=== PATIENT | male | born 1980 | race African-American/Black ===

== ENCOUNTER 2019-09-01 19:30 | Inpatient (IN) | payer MEDICAID, SELFPAY ==
[~2019-09-01] VITALS: Ht 167.6 cm; Wt 84.8 kg
[2019-09-01] MEDS: NACL 0.9% 1,000 ML IV SCH (01:05)
--- NOTE | 2019-09-01 19:40 | NUR ---
PT TAKEN TO BED 9
--- NOTE | 2019-09-01 19:52 | NUR ---
Dr. Cardenas examining patient.
[2019-09-01] MEDS ORDERED: ACETAMINOPHEN EXTRA STRENGTH 500 MG TAB ONE (19:57)
[2019-09-01] MEDS ORDERED: ACETAMINOPHEN EXTRA STRENGTH 500 MG TAB PO ONE (20:00)
--- NOTE | 2019-09-01 20:00 | NUR ---
PT PLACED ON BEDSIDE MONITOR, O2 SAT ON ROOM AIR 88%, PLACED ON O2 4L N/C. LABS DRAWN AND NASAL SWABS COMPLETED.
[2019-09-01 20:27] LABS: BASOPHILS # (AUTO) 0.1 K/uL (0.00-0.22); BASOPHILS % (AUTO) 0.9 % (0.0-2.0); EOSINOPHILS # (AUTO) 0.1 K/uL (0-0.4); EOSINOPHILS % (AUTO) 1.8 % (0.0-4.0); HEMATOCRIT 27.1 % (36-52); LYMPHOCYTES # (AUTO) 0.4 K/uL (2.0-11.5); LYMPHOCYTES % (AUTO) 5.3 % (20.5-51.1); MEAN CORPUSCULAR HEMOGLOBIN 28 pg (27-31); MEAN CORPUSCULAR HGB CONC 33 g/dL (33-37); MONOCYTES # (AUTO) 0.6 K/uL (0.8-1.0); MONOCYTES % (AUTO) 7.7 % (1.7-9.3); NEUTROPHILS # (AUTO) 6.4 K/uL (1.8-7.7); NEUTROPHILS % (AUTO) 84.3 % (42.2-75.2); PLATELET COUNT (AUTO) 322 K/uL (140-450); RED BLOOD CELL COUNT(AUTO) 3.19 MIL/uL (4.20-6.10); RED CELL DISTRIBUTION WIDTH 13.9 % (11.6-13.7); WHITE BLOOD COUNT (AUTO) 7.6 K/uL (4.8-10.8)
--- NOTE | 2019-09-01 20:30 | NUR ---
EKG COMPLETED AND SHOWED TO DR. MORSE
--- NOTE | 2019-09-01 20:31 | NUR ---
RT AT BEDSIDE DRAWING ABG.
--- NOTE | 2019-09-01 20:35 | NUR ---
BED IN LOWEST POSITION AND BEDRAIL UP X 1
[2019-09-01 20:38] LABS: C-REACTIVE PROTEIN QUANT 21.8 mg/dL (0.0-0.9)
[2019-09-01 20:41] LABS: ALBUMIN 2.7 g/dL (3.4-5.0); ANION GAP 12.7 (8-16); CARBON DIOXIDE 31.7 mmol/L (21-32); POTASSIUM 3.4 mmol/L (3.5-5.1); TOTAL BILIRUBIN 0.8 mg/dL (0.0-1.0)
[2019-09-01 20:47] LABS: PROTHROMBIN TIME 9.8 secs (10.8-13.4)
[2019-09-01 20:52] LABS: RSV NEGATIVE (NEGATIVE)
--- NOTE | 2019-09-01 20:54 | NUR ---
X-Ray at bedside.
[2019-09-01 20:55] LABS: AMYLASE 54 U/L (25-115); LACTATE DEHYDROGENASE 265 U/L (85-227)
[2019-09-01 20:56] LABS: LIPASE 67 U/L (73-393)
[2019-09-01 21:00] LABS: D-DIMER 2260 ng/ml (0-400); FIBRINOGEN > 500 mg/dL (200-400)
[2019-09-01 21:36] LABS: APPEARANCE,URINE CLEAR (CLEAR); BILIRUBIN,URINE 2+ (NEGATIVE); BLOOD, URINE 1+ (NEGATIVE); COLOR,URINE YELLOW (YELLOW); LEUKOCYTE ESTERASE ,URINE NEGATIVE (NEGATIVE); NITRITE, URINE NEGATIVE (NEGATIVE); UGLUCOSE 2+ (NEGATIVE)
--- NOTE | 2019-09-01 21:40 | NUR ---
DR. MORSE NOTIFIED ON TEMP 101.9 AND CONTINUED HEADACHE OF 01/30, NEW ORDER GIVEN
[2019-09-01] MEDS ORDERED: IBUPROFEN 400 MG TAB ONE (21:43)
[2019-09-01 21:47] LABS: RBC,URINE 0-5 /HPF (0-5)
[2019-09-01] MEDS ORDERED: IBUPROFEN 400 MG TAB PO ONE (21:55)
[2019-09-01] MEDS ORDERED: AZITHROMYCIN 500 MG in DEXTROSE 5% 250 ML IV ONE (22:40)
[2019-09-01] MEDS ORDERED: cefTRIAXone 1,000 MG VIAL ONE (22:44)
[2019-09-01] MEDS ORDERED: AZITHROMYCIN 500 MG INJ VIAL IV ONE (22:50)
--- NOTE | 2019-09-01 23:23 | NUR ---
PT STATES HE NOW HAS AN APPETITE. AWARE AND OK TO EAT A SANDWICH
[2019-09-01] MEDS ORDERED: ACETAMINOPHEN 325 MG TAB PO PRN (23:30)
--- NOTE | 2019-09-01 23:48 | NUR ---
DR. PEREIRA AT BEDSIDE
[2019-09-01 23:53] LABS: BARBITURATE, URINE NEGATIVE ng/ml (NEG <=200)
[2019-09-01 23:54] LABS: BENZODIAZEPINE, URINE POSITIVE ng/mL (NEG <=200); CANNABINOID, URINE NEGATIVE ng/mL (NEG <=50); COCAINE, URINE NEGATIVE ng/mL (NEG <=300); OPIATE, URINE POSITIVE ng/mL (NEG <=2000); PHENCYCLIDINE SCREEN,URINE NEGATIVE ng/mL (NEG <=25)
[2019-09-02 00:05] LABS: MAGNESIUM 1.9 mg/dL (1.8-2.4); PHOSPHORUS 4.2 mg/dL (2.5-4.9); THYROID STIMULATING HORMONE 1.46 uIU/mL (0.34-3.74)
[2019-09-02] MEDS ORDERED: LISI40TA4 PO (00:09)
[2019-09-02] MEDS ORDERED: ASPI-1822 PO (00:09)
[2019-09-02] MEDS ORDERED: ATOR10TA PO (00:09)
[2019-09-02] MEDS ORDERED: PHO667 PO (00:09)
[2019-09-02] MEDS ORDERED: BENZ100C6 PO (00:09)
[2019-09-02] MEDS ORDERED: HYDR100T79 PO (00:09)
[2019-09-02] MEDS ORDERED: FLUO40CA6 PO (00:09)
[2019-09-02] MEDS ORDERED: ACET1TAB93 PO (00:09)
[2019-09-02] MEDS ORDERED: GABA100C PO (00:09)
--- NOTE | 2019-09-02 00:13 | NUR ---
SPOKE WITH MOTHER JAYCEE WITH PT PERMISSION; INFORMED OF PTS STATUS AND PLAN OF CARE. ALL QUESTIONS ANSWERED.
--- NOTE | 2019-09-02 00:20 | NUR ---
MADE ROUNDS . O2 SAT WNL . NO COMPLAIN MADE . WILL CONT. TO MONITOR. Addendum: 09/03/19 at 0128 by Naa Allan RN THE ABOVE NURSE'S NOTES IS AN ERROR ENTRY - JOSIAH
--- NOTE | 2019-09-02 00:30 | NUR ---
Patient will be admitted to care of [facility]. Admited to TELE UNIT. Will go to room 130. Belongings list completed. Report to LIZZETTE ORELLANA.
[2019-09-02 00:45] VITALS: BP 138/83
[2019-09-02] MEDS ORDERED: POTASSIUM CHLORIDE 10 MEQ TABER PO ONE (00:45)
--- NOTE | 2019-09-02 00:45 | NUR ---
RECEIVED PT AAOX4 , NOT IN ACUTE DISTRESS - O2 SAT WNL , W/ O2 AT 3LPM/NC , ON GURNEY FROM ER , TRANSFER TO BED W/ STANDBY ASSIST . IV SITE INTACT AND PATENT , W/ HD ACCESS ON RIGHT UPPER CHEST - HE SAID HIS LAST HD IS LAST SUNDAY . ADMISSION ASSESSMENT DONE - MRSA SPECIMEN SENT TO LAB . SAFETY MEASURES IN PLACE . PLAN OF CARE DISCUSSED AND VERBALIZE UNDERSTANDING- CALL LIGHT WITHIN REACH . PROVIDED URINAL ON BEDSIDE , ON TELE MONITOR. HOOK ON O2 SAT MONITOR - WILL CONT. TO MONITOR.
[2019-09-02] MEDS ORDERED: cefTRIAXone 1,000 MG VIAL ONE (00:46)
[2019-09-02] MEDS: ZOLPIDEM 5 MG TAB PO PRN (02:32)
[2019-09-02 04:00] VITALS: BP 128/70
--- NOTE | 2019-09-02 04:00 | NUR ---
MADE ROUNDS , NO S/ S OF ACUTE DISTRESS NOTED AT THIS TIME. WILL CONT. TO MONITOR.
[2019-09-02 06:18] LABS: ANION GAP 11.6 (8-16); CARBON DIOXIDE 30.9 mmol/L (21-32); POTASSIUM 4.5 mmol/L (3.5-5.1)
[2019-09-02 06:19] LABS: BASOPHILS # (AUTO) 0.1 K/uL (0.00-0.22); EOSINOPHILS # (AUTO) 0.1 K/uL (0-0.4); EOSINOPHILS % (AUTO) 2.1 % (0.0-4.0); HEMATOCRIT 24.6 % (36-52); HEMOGLOBIN 8.1 g/dL (12.0-18.0); LYMPHOCYTES # (AUTO) 0.6 K/uL (2.0-11.5); LYMPHOCYTES % (AUTO) 11.1 % (20.5-51.1); MEAN CORPUSCULAR HEMOGLOBIN 28 pg (27-31); MEAN CORPUSCULAR HGB CONC 33 g/dL (33-37); MEAN CORPUSCULAR VOLUME 85.9 fL (80-94); MONOCYTES # (AUTO) 0.5 K/uL (0.8-1.0); MONOCYTES % (AUTO) 9.3 % (1.7-9.3); NEUTROPHILS # (AUTO) 4.2 K/uL (1.8-7.7); NEUTROPHILS % (AUTO) 76.5 % (42.2-75.2); PLATELET COUNT (AUTO) 276 K/uL (140-450); RED BLOOD CELL COUNT(AUTO) 2.87 MIL/uL (4.20-6.10); RED CELL DISTRIBUTION WIDTH 13.9 % (11.6-13.7); WHITE BLOOD COUNT (AUTO) 5.5 K/uL (4.8-10.8)
[2019-09-02] MEDS ORDERED: DEXTROSE 50% 50 ML SYR IVP PRN (06:30)
[2019-09-02 06:41] LABS: CREATININE 9.5 mg/dL (0.6-1.3)
[2019-09-02 06:45] LABS: CHOL/HDL RATIO 6.7 (1-4.5); MAGNESIUM 1.8 mg/dL (1.8-2.4); PHOSPHORUS 4.4 mg/dL (2.5-4.9)
[2019-09-02] MEDS: INSULIN LISPRO SLIDING SCALE 100 UNITS/ML VIAL SUBQ PRN ×3 (06:52→16:14)
[2019-09-02] MEDS: BLOOD GLUCOSE MONITORING 1 DEV DEV FS SCH ×4 (06:53→21:34)
--- NOTE | 2019-09-02 06:58 | NUR ---
HGT 457 - 10 U GIVEN ORDERED BY DR. GIBSON - INFORM CHARGE NURSE. WILL CONT. TO MONITOR. Addendum: 09/02/19 at 0748 by Naa Allan RN THE WORD DR. GIBSON ON THE ABOVE NURSE'S NOTES IS AN ERROR ENTRY INSTEAD OF DR JANY RAHMAN
--- NOTE | 2019-09-02 07:20 | NUR ---
ENDORSED - PT - STABLE
--- NOTE | 2019-09-02 07:21 | NUR ---
Received report from pm nurse Naa. Pt asleep, respirations even & nonlabored on O2 @ 3Lpm via n/c with visible chest rise & fall. Call light within reach.
[2019-09-02 08:00] VITALS: BP 139/89
--- NOTE | 2019-09-02 08:51 | NUR ---
PATIENT HAS BEEN SCREENED AND CATEGORIZED HIGH NUTRITION RISK. PATIENT WILL BE SEEN WITHIN 1-2 DAYS OF ADMISSION. 09/02/19-09/03/[address]
[2019-09-02] MEDS ORDERED: ENOXAPARIN 40 MG/0.4 ML SYR SUBQ SCH (09:00)
[2019-09-02] MEDS: hydrALAZINE 25 MG TAB PO SCH ×3 (09:00→16:13)
[2019-09-02] MEDS: LISINOPRIL 20 MG TAB PO SCH (09:00)
[2019-09-02] MEDS ORDERED: AZITHROMYCIN 250 MG TAB PO SCH (09:00)
[2019-09-02] MEDS ORDERED: VANCOMYCIN PER PHARMACY MC PRN (09:20)
[2019-09-02] MEDS: FAMOTIDINE 20 MG TAB PO SCH (09:34)
[2019-09-02] MEDS: FLUoxetine 20 MG CAP PO SCH (09:35)
[2019-09-02] MEDS: ASPIRIN 81 MG TAB.CHEW PO SCH (09:35)
[2019-09-02] MEDS: ASCORBIC ACID 500 MG TAB PO SCH (09:35)
[2019-09-02] MEDS: GABAPENTIN 100 MG CAP PO SCH ×3 (09:35→16:12)
[2019-09-02] MEDS: DOCUSATE SODIUM 100 MG GELCAP PO SCH ×2 (09:35→21:34)
[2019-09-02] MEDS: ZINC SULF 220 MG CAP PO SCH (09:36)
--- NOTE | 2019-09-02 10:15 | NUR ---
Spoke to [facility] and confirmed ETA for hemodialysis is 12noon. Dr Petersen notified.
--- NOTE | 2019-09-02 10:39 | NUR ---
DISCHARGE PLANNING: THIS IS A 39 Y/O MALE PATIENT FROM HOME, WHO CAME IN DUE TO COUGH AND GENERALIZED WEAKNESS. PAST MEDICAL HISTORY INCLUDE ESRD - ON HD , HTN, DM, NEUROPATHY AND HLD. MRSA, BLOOD AND URINE C/S PENDING. ON ROCEPHIN. CURRENT LABS INCLUDE WBC 5.5, H/H 8.1/8.1/24.6, NA/K 137/4.5, BUN/CREA 36/9.5 AND GLU 511. UDS POSITIVE FOR OPIATES AND BENZO. COVID 19 PENDING. NEGATIVE FOR INFLUENZA AND B AND NEGATIVE WITH RSV NEGATIVE. FOR HD TODAY. NEPHRO, ID, CARDIO AND PULMO CONSULTS IN PLACE. DC PLAN PENDING ON PATIENT'S RESPONSE TO TREATMENT. Addendum: 09/03/19 at 1050 by Daphne Goldstein CM OLD PERMA CATH WAS REMOVED LAST NIGHT BY DR FAROOQ. SEEN BY NEPHRO - ON LINE HOLIDAY, ADD NIFEDIPINE FOR HTN. COVID TEST STILL PENDING. DC PLAN BACK TO HOME ONCE STABLE. Addendum: 09/03/19 at 1058 by Daphne BClaire Berdijo CM CONTACTED LAB [id number], ABLE TO SPEAK TO BACILIO TO FOLLOW UP ON THE COVID RESULTS. HE STATED NO RESULTS ARE BACK YET, HOWEVER, HE WILL CONTACT THE LAB TO FOLLOW UP. Addendum: 09/04/19 at 1349 by Daphne Goldstein CM SEEN BY SURGERY - PLAN FOR REPLACEMENT OF CHE CATHETER TOMORROW. Addendum: 09/05/19 at 1336 by Kendy Marino CM DC PLANNING: SPOKE WITH DR BRITTNEE SCHNEIDER [place] CLERK DISCUSSED REGARDING DC WITH CHE CATH , PER DR BEAULIEU WILL DISCUSSED WITH ID DR PEDRO AND RESIDENT AND IF ID REQUEST NEEDS 2 WEEKS TO INSERT TUNNELED CATH OK TO DC WITH CHE CATH. CALLED [facility] [phone] SPOKE WITH ABIEL NOTIFIED HER PATIENT HAS A DIALYSIS ORDER AND IV VANCOMYCIN TO BE GIVEN WITH DIALYSIS. AND PER ID DR PEDRO PATIENT HAS TO WAIT 2 MORE WEEKS FOR INSERTION OF TUNNELED CATH. OK TO HAVE DIALYSIS WITH CHE CATH. FAXED ALL THE REQUEST TO [phone]. CM TO FOLLOW.
[2019-09-02] MEDS: VITAMIN D 400 IU TAB PO SCH (11:55)
[2019-09-02 12:00] VITALS: BP 142/78
--- NOTE | 2019-09-02 12:10 | NUR ---
Jackie dialysis nurse arrived at bedside for hemodialysis tx.
--- NOTE | 2019-09-02 12:57 | NUR ---
09/02/19 RD INITIAL ASSESSMENT COMPLETED PLEASE REFER TO NUTRITION ASSESSMENT UNDER CARE ACTIVITY FOR ESTIMATED NUTRITIONAL NEEDS. 1. RECOMMENDED CCHO 60GM AND RENAL DIET TOLERATED 2. RD PROVIDED NUTRITION EDUCATION ON RENAL DIET 3. IF PO INTAKE <75% CONSIDER ADDING NEPRO BID 4. RD TO FOLLOW-UP 3-5 DAYS, MODERATE RISK ALBERTO CH, RD
--- NOTE | 2019-09-02 15:24 | NUR ---
Per Jackie, dialysis nurse, hemodialysis is completed with 2L output. Pt resting in bed, awake, no signs of distress. Will cont to monitor.
--- NOTE | 2019-09-02 15:50 | NUR ---
Pt asleep, respirations tacypneic in room air, SaO2 88%. Woke patient up and applied O2 @ 2Lpm via n/c. SaO2 increased to 95%, respirations even & nonlabored. Pt verbally responsive, c/o 6/10 generalized body pain. Will administer pain med as ordered.
[2019-09-02 16:00] VITALS: BP 160/76
[2019-09-02] MEDS: HYDROcodone/APAP 7.5/325 MG 1 TAB PO PRN ×2 (16:13→23:55)
--- NOTE | 2019-09-02 17:20 | NUR ---
Dr Lr came in to see pt. Notified of gram positive cocci in preliminary blood cx report. Per dr, will input orders accordingly.
--- NOTE | 2019-09-02 19:20 | NUR ---
RECEIVED PT AAOX4 , NID - O2 SAT WNL . IV SITE INTACT AND PATENT , W/ HD ACCESS ON RIGHT UPPER CHEST - TO BE REMOVED PLAN OF CARE . ON TELE MONITOR . HAD HD TODEAY W/ 2L OUTPUT. SAFETY MEASURES IN PLACE . PLAN OF CARE DISCUSSED AND VERBALIZED UNDERSTANDING - CALL LIGHT WITHIN REACH .WILL CONT. TO MONITOR.
[2019-09-02 20:00] VITALS: BP 144/80
[2019-09-02] MEDS ORDERED: VANCOMYCIN 750 MG in NACL 0.9% 250 ML IV SCH (20:00)
[2019-09-02] MEDS: NACL 0.9% 1,000 ML IV SCH (21:00)
[2019-09-02] MEDS ORDERED: LIDOCAINE/EPI 1% 1:100000 20 ML VIAL INJ ONE (21:15)
[2019-09-02] MEDS ORDERED: LIDOCAINE MPF 1% 0 ML ONE (21:20)
[2019-09-02] MEDS ORDERED: LIDOCAINE MPF 1% 10 ML ONE (21:21)
--- NOTE | 2019-09-02 21:30 | NUR ---
GOT CONSENT FOR REMOVAL OF TUNNELED DIALYSIS CATHETER - CATH WILL REMOVE BY DR. FAROOQ.
[2019-09-02] MEDS: ATORVASTATIN 20 MG TAB PO SCH (21:35)
--- NOTE | 2019-09-02 22:40 | NUR ---
TUNNELED DIAL;YSIS CATH - REMOVED BY DR. FAROOQ - PROCEDURE TOLERATED WELL - NO ACTIVE BLEEDING NOTED AT THIS TIME . CATH TIP - TO BE SENT TO LAB ORDERED. APPLIED DRESSING ON THE CATH. SITE - WILL CONT. TO MONITOR. Addendum: 09/03/19 at 0147 by Naa Allan RN ON THE ABOVE NURSE'S NOTE W/ THE WORD DIAL;YSIS IS AN ERROR INSTEAD OF DIALYSIS.- JOSIAH
[2019-09-03] VITALS: BP 133/80
--- NOTE | 2019-09-03 00:55 | NUR ---
ENDORSED TO NURSE ESCAMILLA FOR CONTINUITY OF CARE - PT - STABLE . I TOLD HER PT HAS PREVIOUSLY HOME MEDS TO BE SENT TO PHARMACY - I TALKED ALREADY THE PATIENT ABOUT THIS MATTER AND PT. AGREED TO SEND IT TO PHARMACY .
--- NOTE | 2019-09-03 00:55 | NUR ---
RECEIVED ENDORSEMENT FROM ESTEBAN CROCKER. PATIENT IS LYING IN BED. RESPIRATION EVEN AND UNLABORED. NO SOB. ON 02 AT 3LPM VIA NC. DENIES PAIN. IV SITE AT RAC 20G WITH IVF INFUSING. OLD HEMODIALYSIS ACCESS WAS REMOVED AT HIS RIGHT CHEST. HD SCHEDULE IS EVERY SUN,,SAT. LAST HD WAS 09/02/2019. PATIENT IS R/O COVID19. DROPLET ISOLATION PRECAUTION OBSERVED AT ALL TIMES. PLAN OF CARE WAS DISCUSSED. CALL LIGHT WITHIN REACH. WILL CONTINUE TO MONITOR.
--- NOTE | 2019-09-03 02:32 | NUR ---
PATIENT SAID THAT HE CAN'T SLEEP AND WANT A SLEEPING PILL. LOWERED THE TV VOLUME. LIGHT TURNED OFF. GAVE AMBIEN 5MG PO PRN FOR INSOMNIA ORDERED. WILL CONTINUE TO MONITOR.
[2019-09-03] MEDS ORDERED: ALBUTEROL HFA MDI 90 MCG/ACTUATION 8 GM INH PRN (02:40)
[2019-09-03] MEDS: ZOLPIDEM 5 MG TAB PO PRN ×2 (02:48→23:01)
[2019-09-03 04:00] VITALS: BP 159/102
[2019-09-03] MEDS: HYDROcodone/APAP 7.5/325 MG 1 TAB PO PRN ×2 (04:35→12:35)
--- NOTE | 2019-09-03 04:35 | NUR ---
PATIENT C/O BACK PAIN. REPOSITIONED. NORCO TAB GIVEN ORDERED. NO SOB. WILL CONTINUE TO MONITOR.
--- NOTE | 2019-09-03 05:40 | NUR ---
PATIENT IS RESTING. DENIES PAIN. WILL CONTINUE TO MONITOR.
[2019-09-03 06:00] LABS: BASOPHILS # (AUTO) 0.1 K/uL (0.00-0.22); BASOPHILS % (AUTO) 0.9 % (0.0-2.0); EOSINOPHILS # (AUTO) 0.1 K/uL (0-0.4); EOSINOPHILS % (AUTO) 1.9 % (0.0-4.0); HEMATOCRIT 25.1 % (36-52); HEMOGLOBIN 8.4 g/dL (12.0-18.0); LYMPHOCYTES # (AUTO) 0.8 K/uL (2.0-11.5); LYMPHOCYTES % (AUTO) 13.2 % (20.5-51.1); MEAN CORPUSCULAR HEMOGLOBIN 28 pg (27-31); MEAN CORPUSCULAR HGB CONC 33 g/dL (33-37); MEAN CORPUSCULAR VOLUME 84.9 fL (80-94); MONOCYTES # (AUTO) 0.5 K/uL (0.8-1.0); MONOCYTES % (AUTO) 8.5 % (1.7-9.3); NEUTROPHILS # (AUTO) 4.5 K/uL (1.8-7.7); NEUTROPHILS % (AUTO) 75.5 % (42.2-75.2); PLATELET COUNT (AUTO) 294 K/uL (140-450); RED BLOOD CELL COUNT(AUTO) 2.96 MIL/uL (4.20-6.10); RED CELL DISTRIBUTION WIDTH 13.9 % (11.6-13.7)
[2019-09-03 06:27] LABS: CARBON DIOXIDE 27.9 mmol/L (21-32); POTASSIUM 3.9 mmol/L (3.5-5.1)
[2019-09-03 06:31] LABS: CREATININE 7.8 mg/dL (0.6-1.3); TOTAL BILIRUBIN 0.4 mg/dL (0.0-1.0)
[2019-09-03 06:32] LABS: ALBUMIN 2.2 g/dL (3.4-5.0); MAGNESIUM 1.6 mg/dL (1.8-2.4); PHOSPHORUS 3.6 mg/dL (2.5-4.9)
--- NOTE | 2019-09-03 07:25 | NUR ---
DUE MED GIVEN ORDERED. PATIENT SAID HE VOMITED. PATIENT IS IN BED AND ADVISED HIM NOT TO WALK WITHOUT ASSIST. ENDORSED TO AM SHIFT RN ABOUT THE PATIENT VOMITING EPISODE AND TO GIVE HIM MED FOR NAUSEA.
--- NOTE | 2019-09-03 07:30 | NUR ---
AM NURSE AWARE TO MONITOR PATIENT FOR N/V AND TO GIVE HIM MED FOR IT.
--- NOTE | 2019-09-03 07:30 | NUR ---
RECEIVED REPORT FROM MANAGER COMPLIANCE NURSE. PT CURRENTLY WENT TO THE RESTROOM AND CAME BACK WITH NO SIGNS OF DISTRESS NOTED. SKIN IS INTACT WITH IV PATENT AND ASYMPTOMATIC AND INFUSING PER ORDER. NO COMPLAINTS OF PAIN AT THIS TIME. RESPIRATIONS ARE EVEN AND UNLABORED ON 3L NASAL CANNULA WITH O2 SATURATIONS AT 95%. SAFETRY MEASURES IN PLACE AND WILL CONTINUE TO MONITOR.
--- NOTE | 2019-09-03 07:30 | NUR ---
WENT TO PATIENT'S ROOM TO PUT BACK THE TELE MONITOR LEADS, BUT PATIENT REFUSED. EXPLAINED RISKS AND BENEFITS, STILL REFUSES. AM NURSE JAVON CURRY. Addendum: 09/03/19 at 0825 by Jake Bosch RN THE NOTES ABOVE IS NOT FOR THE PATIENT. WRONG PATIENT.
[2019-09-03] MEDS: BLOOD GLUCOSE MONITORING 1 DEV DEV FS SCH ×4 (07:37→20:25)
[2019-09-03] MEDS: INSULIN LISPRO SLIDING SCALE 100 UNITS/ML VIAL SUBQ PRN ×3 (07:39→17:25)
[2019-09-03 08:00] VITALS: BP 150/96
--- NOTE | 2019-09-03 09:30 | NUR ---
PT AWAKE AND ALERT BUT TIRED, PT STATES HE IS HAVING TROUBLE SLEEPING, BUT BREATHING MUCH BETTER, NO SIGNS OF RESP. DISTRESS NOTED AT THIS TIME, RN STATED THAT PT O2 DROPPED TO WHILE PT WAS OF NC WALKING TO RESTROOM, I PLACED O2 EXTENSIONS ON NC AND INFORMED RN.
--- NOTE | 2019-09-03 09:45 | NUR ---
RESPIRATORY THERAPISTS WENT TO SEE PATIENT AND GAVE EXTENSIONS TUBING FOR NASAL CANNULA. PT SHOWS NO SIGNS OF DISTRESS. SAFETY MEASURES IN PLACE AND WILL CONTINUE TO MONITOR.
[2019-09-03] MEDS: ASPIRIN 81 MG TAB.CHEW PO SCH (10:10)
[2019-09-03] MEDS: GABAPENTIN 100 MG CAP PO SCH ×3 (10:11→17:05)
[2019-09-03] MEDS: DOCUSATE SODIUM 100 MG GELCAP PO SCH ×2 (10:11→20:14)
[2019-09-03] MEDS: ASCORBIC ACID 500 MG TAB PO SCH (10:11)
[2019-09-03] MEDS: FLUoxetine 20 MG CAP PO SCH (10:11)
[2019-09-03] MEDS: hydrALAZINE 25 MG TAB PO SCH ×3 (10:11→17:06)
[2019-09-03] MEDS: FAMOTIDINE 20 MG TAB PO SCH (10:11)
[2019-09-03] MEDS: ZINC SULF 220 MG CAP PO SCH (10:12)
[2019-09-03] MEDS: ONDANSETRON 4 MG/2 ML VIAL IVP PRN ×3 (10:12→22:38)
[2019-09-03] MEDS: VITAMIN D 400 IU TAB PO SCH (10:16)
[2019-09-03] MEDS: NIFEdipine 60 MG TABER PO SCH (10:16)
[2019-09-03] MEDS: LISINOPRIL 20 MG TAB PO SCH (10:17)
--- NOTE | 2019-09-03 10:29 | NUR ---
ADMINISTERED MEDICATIONS PER ORDER AND TOLERATED WELL. PT STATES THAT HE DOESNT LIKE FEELING THIS WAY. ALSO STATES THAT HE HAS PAIN AND WOULD LIKE SOME PAIN MEDICATION. NO SIGNS OF DISTRESS NOTED. SAFETY MEASURES IN PLACE AND WILL CONTINUE TO MONITOR.
[2019-09-03] MEDS ORDERED: MAG SULF 2000 MG/WATER PREMIX 50 ML IV ONE (11:55)
[2019-09-03 12:00] VITALS: BP 177/113
[2019-09-03] MEDS: INSULIN LANTUS 100 UNITS/ML 10 ML VIAL SUBQ SCH (12:32)
--- NOTE | 2019-09-03 12:56 | NUR ---
ADMINISTERED MEDICATIONS PER ORDER AND TOLERATED WELL. PT COMPLAINS OF BACK PAIN AND NAUSEA. NORCO WAS GIVEN FOR PAIN AND WILL REASSESS IN ONE HOUR. ZOFRAN NOT DUE UNTIL 2PM AND THEN WILL ADMINISTER. BLOOD GLUCOSE WAS 237 ND 4 UNITS OF INSULIN WAS GIVEN. SAFETY MEASURES IN PLACE AND WILL CONTINUE TO MONITOR.
--- NOTE | 2019-09-03 13:40 | NUR ---
REASSESSED PAIN LEVEL AND PT STATED THAT PAIN WAS REDUCED TO A 0/10. NORCO WAS VERY EFFECTIVE. PT DOES NOT HAVE ANY OTHER COMPLAINTS AT THIS TIME AND WILL CONTINUE TO MONITOR.
[2019-09-03] MEDS: NACL 0.9% 1,000 ML IV SCH (15:26)
--- NOTE | 2019-09-03 15:50 | NUR ---
PTS BLOOD PRESSURE IS HIGH AND DR. DOBSON WAS NOTIFIED. HYDRALAZINE IS ORDERED AND NO FURTHER CHANGES TO MEDICATIONS. SAFETY MEASURES IN PLACE AND WILL CONTINUE TO MONITOR.
[2019-09-03 16:00] VITALS: BP 140/91
--- NOTE | 2019-09-03 17:26 | NUR ---
ADMINISTERED MEDICATIONS PER ORDER AND TOLERATED WELL. PT WAS DRY HEAVING AT BEDSIDE WITH NO EMESIS OCCURRENCE. IV SITE WAS LEAKING AND REMOVED WITH LUMEN INTACT AND MINIMAL BLOOD LOSS. BLOOD GLUCOSE WAS 190 AND 2 UNITS OF INSULIN WAS ADMINISTERED.
--- NOTE | 2019-09-03 19:38 | NUR ---
ENDORSED TO ABORIGINAL COMMUNITY COUNCIL MEMBER NURSE FOR CONTINUITY OF CARE. PT IS IN STABLE CONDITION.
--- NOTE | 2019-09-03 19:39 | NUR ---
RECEIVED BEDSIDE REPORT FROM DAY RN. PT IS AAOX4. RESPIRATIONS ARE EQUAL AND UNLABORED ON 2L O2 VIA NC PT DOES DE SAT IN 70S WHEN OFF OXYGEN. SKIN IS WARM AND DRY TO TOUCH. PT WITH HX ESRD HD T,,SAT HD PORT REMOVED TODAY BY DR FAROOQ AND SURGERY TOMORROW TO INSERT NEW PORT. IV ON R HAND 22G INFUSING NS AT 50M/H. SAFETY MEASURES ARE IN PLACE. POC DISCUSSED WITH PT. CALL LIGHT IS WITHIN REACH.
[2019-09-03 20:00] VITALS: BP 125/69
[2019-09-03] MEDS: ATORVASTATIN 20 MG TAB PO SCH (20:14)
--- NOTE | 2019-09-03 20:25 | NUR ---
VSS. MARTIN MEDICATIONS GIVEN PER ORDERS. BG 155 HELD INSULIN D/T DECREASE APPETITE AND C/C NAUSEA. ALL NEEDS MET AT THIS TIME. CALL LIGHT IS WITHIN REACH,
--- NOTE | 2019-09-03 22:00 | NUR ---
PT IS RESTING COMFORTABLY IN BED WATCHING TV. NO S/S OF DISTRESS. CALL LIGHT IS WITHIN REACH.
--- NOTE | 2019-09-03 23:01 | NUR ---
ADMINISTERED PRN ZOFRAN AND AMBIEN. PT COMPLAIN OF NAUSEA AND IS DRY HEAVING AND SPITING. PT SITTING UP. IVF PER ORDERS, SAFETY MEASURES ARE IN PLACE. WILL CONTINUE TO MONITOR.
[2019-09-04] VITALS: BP 132/82
--- NOTE | 2019-09-04 | NUR ---
PATIENT IS RESTING COMFORTABLY IN BED WITH EYES CLOSED. CHEST RISE AND FALL NOTED. SAT 94% ON 3L O2 VIA NC. CALL LIGHT IS WITHIN REACH.
--- NOTE | 2019-09-04 02:15 | NUR ---
PT IS SLEEPING COMFORTABLY IN BED WITH EYES CLOSED. CHEST RISE AND FALL NOTED. ALL SAFETY MEASURES ARE IN PLACE.
[2019-09-04 04:00] VITALS: BP 135/80
[2019-09-04] MEDS: HYDROcodone/APAP 7.5/325 MG 1 TAB PO PRN ×2 (04:20→21:39)
--- NOTE | 2019-09-04 04:20 | NUR ---
VSS, ADMINISTERED PRN NORCO FOR BACK PAIN 09/30 PT TOLERATED WELL. WILL CONTINUE TO MONITOR.
[2019-09-04 06:05] LABS: BASOPHILS # (AUTO) 0.1 K/uL (0.00-0.22); BASOPHILS % (AUTO) 1.2 % (0.0-2.0); EOSINOPHILS # (AUTO) 0.1 K/uL (0-0.4); EOSINOPHILS % (AUTO) 2.1 % (0.0-4.0); HEMATOCRIT 24.9 % (36-52); HEMOGLOBIN 8.2 g/dL (12.0-18.0); LYMPHOCYTES # (AUTO) 0.7 K/uL (2.0-11.5); LYMPHOCYTES % (AUTO) 12.9 % (20.5-51.1); MEAN CORPUSCULAR HEMOGLOBIN 28 pg (27-31); MEAN CORPUSCULAR HGB CONC 33 g/dL (33-37); MEAN CORPUSCULAR VOLUME 84.3 fL (80-94); MONOCYTES # (AUTO) 0.5 K/uL (0.8-1.0); MONOCYTES % (AUTO) 8.9 % (1.7-9.3); NEUTROPHILS # (AUTO) 4.2 K/uL (1.8-7.7); NEUTROPHILS % (AUTO) 74.9 % (42.2-75.2); PLATELET COUNT (AUTO) 343 K/uL (140-450); RED BLOOD CELL COUNT(AUTO) 2.96 MIL/uL (4.20-6.10); RED CELL DISTRIBUTION WIDTH 14.4 % (11.6-13.7); WHITE BLOOD COUNT (AUTO) 5.7 K/uL (4.8-10.8)
--- NOTE | 2019-09-04 06:30 | NUR ---
DR DOBSON AT BEDSIDE ASSESS PATIENT AND EXPLAINING POC FOR TODAY. IV ON R HAND REMOVED CATH IS INTACT. NEW IV INSERTED ON R AC 22G. ALL NEEDS MET. CALL LIGHT IS WITHIN REACH. WILL CONTINUE TO MONITOR.
[2019-09-04] MEDS: BLOOD GLUCOSE MONITORING 1 DEV DEV FS SCH ×4 (06:52→20:41)
--- NOTE | 2019-09-04 07:11 | NUR ---
PT IS SLEEPING COMFORTABLY IN BED. CHEST RISE AND FALL NOTED. WILL ENDORSE TO DAY RN. PT IS STABLE.
[2019-09-04 07:22] LABS: ALBUMIN 2.2 g/dL (3.4-5.0); ANION GAP 11.4 (8-16); CARBON DIOXIDE 28.2 mmol/L (21-32); MAGNESIUM 2.2 mg/dL (1.8-2.4); PHOSPHORUS 4.6 mg/dL (2.5-4.9); POTASSIUM 3.6 mmol/L (3.5-5.1); TOTAL BILIRUBIN 0.5 mg/dL (0.0-1.0)
--- NOTE | 2019-09-04 07:38 | NUR ---
RECEIVED BEDSIDE REPORT FROM ACID CONDITIONER RN FOR CONTINUITY OF CARE. PT IS AAOX4. RESPIRATIONS ARE EQUAL AND UNLABORED ON 2L O2 VIA NC PT DOES DE-SAT IN 70S WHEN OFF OXYGEN. SKIN IS WARM AND DRY TO TOUCH. PT WITH HX ESRD HD T,TH,SAT HD PORT REMOVED YESTERDAY BY DR FAROOQ AND SURGERY TODAY TO INSERT NEW PORT. IV ON R HAND 22G INFUSING NS AT 50ML/HR. SAFETY MEASURES ARE IN PLACE. POC DISCUSSED WITH PT. CALL LIGHT IS WITHIN REACH. WILL ROUND FREQUENTLY ON PT.
[2019-09-04 08:00] VITALS: BP 144/89
[2019-09-04] MEDS: ASCORBIC ACID 500 MG TAB PO SCH (09:00)
[2019-09-04] MEDS: hydrALAZINE 25 MG TAB PO SCH ×3 (09:00→17:00)
[2019-09-04] MEDS: LISINOPRIL 20 MG TAB PO SCH (09:00)
[2019-09-04] MEDS: GABAPENTIN 100 MG CAP PO SCH ×3 (09:00→17:00)
[2019-09-04] MEDS: FLUoxetine 20 MG CAP PO SCH (09:00)
[2019-09-04] MEDS: ZINC SULF 220 MG CAP PO SCH (09:00)
[2019-09-04] MEDS: INSULIN LANTUS 100 UNITS/ML 10 ML VIAL SUBQ SCH (09:00)
[2019-09-04] MEDS: FAMOTIDINE 20 MG TAB PO SCH (09:00)
[2019-09-04] MEDS: VITAMIN D 400 IU TAB PO SCH (09:00)
[2019-09-04] MEDS: DOCUSATE SODIUM 100 MG GELCAP PO SCH ×2 (09:00→20:34)
[2019-09-04] MEDS: NIFEdipine 60 MG TABER PO SCH (09:00)
[2019-09-04] MEDS: ASPIRIN 81 MG TAB.CHEW PO SCH (09:00)
[2019-09-04 09:29] LABS: CREATININE 9.1 mg/dL (0.6-1.3)
--- NOTE | 2019-09-04 10:01 | NUR ---
ADMINISTERED MORNING MEDS TO PT. PT TOLERATED WELL. WILL CONTINUE TO ROUND ON PT.
--- NOTE | 2019-09-04 10:09 | NUR ---
NAGI FROM ACUTE DIALYSIS NOTIFIED FOR HD ORDER ORDER FOR TOMORROW. TIN MADE AWARE.
[2019-09-04] MEDS: NACL 0.9% 1,000 ML IV SCH (11:26)
[2019-09-04 12:00] VITALS: BP 144/98
--- NOTE | 2019-09-04 12:48 | NUR ---
PT ASLEEP. ALL NEEDS MET. WILL CONTINUE TO ROUND FREQUENTLY.
[2019-09-04] MEDS ORDERED: VANCOMYCIN 750 MG in DEXTROSE 5% 250 ML IV SCH (14:00)
--- NOTE | 2019-09-04 14:25 | NUR ---
PT RESTINGI NBED WATCHING TV. ALL NEEDS MET. WILL CONTINUE TO ROUND ON PT.
--- NOTE | 2019-09-04 14:38 | NUR ---
ADMIN MEDS TO PT. PT TOLERATED WELL. WILL CONTINUE TO ROUND ON PT.
[2019-09-04 16:00] VITALS: BP 137/48
--- NOTE | 2019-09-04 18:11 | NUR ---
PT PT EATING DINNER. ALL NEEDS MET. WILL CONTINUE TO ROUND FREQUENTLY ON PT.
--- NOTE | 2019-09-04 19:50 | NUR ---
ENDORSED PT TO OPHTHALMIC SURGICAL ASSISTANT FOR CONTINUITY OF CARE. PT IN STABLE CONDITION AT THIS TIME.
--- NOTE | 2019-09-04 19:52 | NUR ---
RECEIVED BEDSIDE SHIFT REPORT FROM DAYSHIFT NURSE FOR CONTINUITY OF CARE. PATIENT AWAKE IN BED NO SIGNS OF DISTRESS NOTED. RESPIRATIONS EVEN AND UNLABORED ON O2 VIA NC. TELE MONITOR ATTACHED, IV PATENT AND INFUSING. CALL LIGHT WITHIN REACH. WILL CONTINUE TO MONITOR
[2019-09-04 20:00] VITALS: BP 128/83
[2019-09-04] MEDS: ATORVASTATIN 20 MG TAB PO SCH (20:34)
--- NOTE | 2019-09-04 20:40 | NUR ---
ADMINISTERED 2100 MEDICATIONS TO PATIENT. PATIENT TOLERATED WELL. OBTAINED ELEVATED BS WILL ADMINISTER COVERAGE. CALL LIGHT WITHIN REACH ALL MONITORS ATTACHED
[2019-09-04] MEDS: INSULIN LISPRO SLIDING SCALE 100 UNITS/ML VIAL SUBQ PRN (21:36)
--- NOTE | 2019-09-04 21:39 | NUR ---
PT COMPLAINED OF 6/10 PAIN IN BACK. MEDICATED PATIENT WITH PRN NORCO PER MD ORDER. PT TOLERATED WELL NO SIGNS OF DISTRESS NOTED. ALL MONITORS ATTACHED AND CALL LIGHT WITHIN REACH
[2019-09-04] MEDS: ZOLPIDEM 5 MG TAB PO PRN (22:22)
--- NOTE | 2019-09-04 22:22 | NUR ---
PT CALLED TO REQUEST A SLEEP AID. PT STATES HE IS HAVING INSOMNIA. PT TOLERATED WELL NO SIGNS OF DISTRESS NOTED. PT VERBALIZED A DECREASE IN PAIN TO 0/10. WILL CONTINUE TO MONITOR CALL LIGHT WITHIN REACH AND ALL MONITORS ATTACHED
[2019-09-05] VITALS: BP 140/86
--- NOTE | 2019-09-05 00:46 | NUR ---
ROUNDING. PT AWAKE IN BED WATCHING TV. STATES AMBIEN MADE HIM DROWSY AND HE SLEPT FOR A LITTLE WHILE BUT IS WATCHING SOME TV FOR NOW. WILL CONTINUE TO MONITOR
--- NOTE | 2019-09-05 02:10 | NUR ---
ROUNDING PT ASLEEP IN BED. NO SIGNS OF DISTRESS NOTED. RESPIRATIONS EVEN AND UNLABORED. ON O2. ALL MONITORS ATTACHED AND WITHIN NORMAL PARAMETERS. CALL LIGHT WITHIN REACH WILL CONTINUE TO MONITOR
--- NOTE | 2019-09-05 03:10 | NUR ---
RECEIVED BEDSIDE REPORT FROM KAISER ORELLANA. PT IS AAOX4. RESPIRATIONS ARE EQUAL AND UNLABORED ON 4L O2 VIA NC PT DOES DE SAT IN 70S WHEN OFF OXYGEN. SKIN IS WARM AND DRY TO TOUCH. PT WITH HX ESRD HD T,TH,SAT HD PORT REMOVED ON 09/02/[address] FAROOQ AND THIS AM TO INSERT NEW PORT FOR HD TODAY. IV ON R AC 22G INFUSING NS AT 50M/H. SAFETY MEASURES ARE IN PLACE. CALL LIGHT IS WITHIN REACH.
[2019-09-05 04:00] VITALS: BP 146/83
--- NOTE | 2019-09-05 04:00 | NUR ---
PT RESTING COMFORTABLY IN BED. REMIND PT KEEP NC ON. VSS. CALL LIGHT IS WITHIN REACH. WILL CONTINUE TO MONITOR
--- NOTE | 2019-09-05 06:00 | NUR ---
PT RESTING COMFORTABLY IN BED. BG 112 NO COVERAGE NEEDED. ALL SAFETY MEASURES ARE IN PLACE.
[2019-09-05 06:17] LABS: BASOPHILS # (AUTO) 0.1 K/uL (0.00-0.22); BASOPHILS % (AUTO) 1.3 % (0.0-2.0); EOSINOPHILS # (AUTO) 0.2 K/uL (0-0.4); EOSINOPHILS % (AUTO) 2.8 % (0.0-4.0); HEMATOCRIT 23.2 % (36-52); HEMOGLOBIN 7.8 g/dL (12.0-18.0); LYMPHOCYTES % (AUTO) 17.7 % (20.5-51.1); MEAN CORPUSCULAR HEMOGLOBIN 29 pg (27-31); MEAN CORPUSCULAR HGB CONC 34 g/dL (33-37); MEAN CORPUSCULAR VOLUME 84.6 fL (80-94); MONOCYTES # (AUTO) 0.5 K/uL (0.8-1.0); MONOCYTES % (AUTO) 9.2 % (1.7-9.3); NEUTROPHILS # (AUTO) 3.7 K/uL (1.8-7.7); PLATELET COUNT (AUTO) 415 K/uL (140-450); RED BLOOD CELL COUNT(AUTO) 2.74 MIL/uL (4.20-6.10); RED CELL DISTRIBUTION WIDTH 14.2 % (11.6-13.7); WHITE BLOOD COUNT (AUTO) 5.4 K/uL (4.8-10.8)
[2019-09-05] MEDS: NACL 0.9% 1,000 ML IV SCH (06:23)
[2019-09-05] MEDS: BLOOD GLUCOSE MONITORING 1 DEV DEV FS SCH ×2 (06:23→11:30)
[2019-09-05 07:01] LABS: MAGNESIUM 2.2 mg/dL (1.8-2.4); PHOSPHORUS 5.3 mg/dL (2.5-4.9)
[2019-09-05 07:04] LABS: ANION GAP 13.2 (8-16); CARBON DIOXIDE 26.1 mmol/L (21-32); POTASSIUM 3.3 mmol/L (3.5-5.1)
--- NOTE | 2019-09-05 07:12 | NUR ---
GAVE BEDSIDE REPORT TO DAY RN. PT ENDORSED IN STABLE CONDITION.
--- NOTE | 2019-09-05 07:30 | NUR ---
RECEIVED PT IN STABLE CONDITION FROM TOUR CONDUCTOR NURSE. TELE PT. WITH NO C/O ANY DISCOMFORT NOR PAIN NOTED. RESPIRATIONS EVEN AND UNLABORED. NO DISTRESS NOTED. PLAN OF CARE DISCUSSED AND VERBALIZED UNDERSTANDING. SAFETY MEASURES IN PLACE. FREQ ROUNDS NEEDED. BED IN LOW POSITION. SIDE RAILS UP X2 AND CALL LIGHT PLACED WITHIN EASY REACH. INSTRUCTED TO CALL IF NEED ASSISTANCE. WILL CONTINUE TO MONITOR.
[2019-09-05 08:00] VITALS: BP 142/94
[2019-09-05 08:12] LABS: CREATININE 9.7 mg/dL (0.6-1.3)
--- NOTE | 2019-09-05 08:30 | NUR ---
DR. BEAULIEU, SURGEON AT BEDSIDE. PER DR. BEAULIEU, HE IS GOING TO INSERT HD CATHETER TO PATIENT AT BEDSIDE. CONSENT ALREADY SIGNED. WILL CONTINUE TO MONITOR.
[2019-09-05] MEDS: hydrALAZINE 25 MG TAB PO SCH ×2 (09:00→12:34)
[2019-09-05] MEDS: LISINOPRIL 20 MG TAB PO SCH (09:00)
[2019-09-05] MEDS: INSULIN LANTUS 100 UNITS/ML 10 ML VIAL SUBQ SCH (09:00)
[2019-09-05] MEDS ORDERED: MORPHINE SULFATE 2 MG/ML SYR IVP SCH (09:00)
[2019-09-05] MEDS: NIFEdipine 60 MG TABER PO SCH (09:00)
--- NOTE | 2019-09-05 09:00 | NUR ---
DR. BEAULIEU TO INSERT HD CATHETER AT BEDSIDE TODAY. SCHEDULED HEPARIN HELD AT THIS TIME. BP MEDS HELD DUE TO DIALYSIS TO BE DONE TODAY. WILL CONTINUE TO MONITOR
[2019-09-05] MEDS ORDERED: LIDOCAINE MPF 1% 0 ML ONE (10:24)
--- NOTE | 2019-09-05 11:00 | NUR ---
DR. BEAULIEU AT BEDSIDE TO PERFORM HD CATHETER PLACEMENT. TECH WITH DR. BEAULIEU. PATIENT TOLERATED PROCEDURE WELL. WILL CONTINUE TO MONITOR.
[2019-09-05] MEDS: ONDANSETRON 4 MG/2 ML VIAL IVP PRN (11:43)
[2019-09-05 12:00] VITALS: BP 183/106
[2019-09-05] MEDS: VITAMIN D 400 IU TAB PO SCH (12:19)
[2019-09-05] MEDS: ASPIRIN 81 MG TAB.CHEW PO SCH (12:19)
[2019-09-05] MEDS: DOCUSATE SODIUM 100 MG GELCAP PO SCH (12:19)
[2019-09-05] MEDS: GABAPENTIN 100 MG CAP PO SCH ×2 (12:19→12:34)
[2019-09-05] MEDS: ZINC SULF 220 MG CAP PO SCH (12:20)
[2019-09-05] MEDS: ASCORBIC ACID 500 MG TAB PO SCH (12:20)
[2019-09-05] MEDS: FLUoxetine 20 MG CAP PO SCH (12:20)
[2019-09-05] MEDS: FAMOTIDINE 20 MG TAB PO SCH (12:20)
--- NOTE | 2019-09-05 12:20 | NUR ---
HD NURSE AT BEDSIDE TO START HD. SCHEDULED AM MEDICATIONS DUE GIVEN. WILL CONTINUE TO MONITOR.
--- NOTE | 2019-09-05 12:35 | NUR ---
PATIENT LYING DOWN IN BED. HD IN PROGRESS. 1300 GABAPENTIN NOT GIVEN AT THIS TIME DUE TO 0900 DOSE JUST GIVEN PATIENT HAD BEDSIDE PROCEDURE OF HD CATHETER INSERTION. WILL CONTINUE TO MONITOR.
--- NOTE | 2019-09-05 13:29 | NUR ---
SPIRAL TUBE WINDER NOTE: Basic Screen: Yes High Risk DC Screen Continental: JAYCEE FU Home Relationship: MOTHER Pre-Admission Living Arrangements: Lives with Other Prior ADL Independent Current Home Health Name/Tel: N/A Current DME/02 Name/Tel: N/A Current Hospice Name/Tel: N/A Current Dialysis Name/Tel: Healthcare Decision Maker: Patient Advance Directive No Physician Orders for Life Sustaining Treatment Form No Patient/Family Have Educational Needs No Discipline: Case Mgt/Social Svcs Tentative Discharge Plan/Destination: No Needs Identified Will require assistance post discharge: No Referred to [facility] Residential Service Technician: No Tentative Discharge Plan Summary: PATIENT IS A 39-YEAR-OLD MALE ADMITTED FOR PNEUMONIA AND END STAGE RENEAL. PATIENT HAS PMHX OF ESRD ON HD /, HTN, DM-II, NEUROAPTHY, AND HLD. PATIENT WAS ADMITTED FROM HOME WHERE HE LIVES WITH HIS MOTHER AND GRANDMOTHER. SW WAS UNABLE TO MEET PATIENT AT BEDSIDE TO VERIFY DEMOGRAPHICS. SW CONTACTED PATIENT'S MOTHER JAYCEE FU [phone] TO VERIFY DEMOGRAPHICS. PER JAYCEE, PATIENT IS INDEPENDENT WTIH ALL ADLS, AND REPORTS NO HISTORY OF MENTAL HEALTH OR SUBSTANCE ABUSE. TENTATIVE DISCHARGE PLAN IS FOR PATIENT TO RETURN HOME. NO FURTHER NEEDS IDENTIFIED. Signature: REX MAY Date: September 05, 2019 Time: 13:28
[2019-09-05] MEDS: INSULIN LISPRO SLIDING SCALE 100 UNITS/ML VIAL SUBQ PRN (13:35)
[2019-09-05] MEDS ORDERED: LANTUS SUBQ (14:25)
[2019-09-05] MEDS ORDERED: HUMSLIDE SUBQ (14:25)
[2019-09-05] MEDS ORDERED: VANC1FRO IV (14:27)
[2019-09-05 16:08] VITALS: BP 183/106
--- NOTE | 2019-09-05 16:30 | NUR ---
DISCHARGE INSTRUCTIONS GIVEN. FOLLOW UP APPOINTMENT AND INSTRUCTIONS GIVEN TO PATIENT. NEW/CHANGED MEDICATION REGIMEN, DISEASE MANAGEMENT OF PNEUMONIA INSTRUCTED. ANSWERED ALL PATIENT QUESTIONS REGARDING DISCHARGE, PATIENT VERBALIZED UNDERSTANDING. IV SITE REMOVED WITH MINIMAL BLOOD, LUMEN INTACT. ID BANDS REMOVED. PATIENT ESCORTED TO LOBBY VIA WHEELCHAIR TO BE DISCHARGED HOME AT THIS TIME.
[2019-09-05] MEDS ORDERED: VANCOMYCIN 750 MG in DEXTROSE 5% 250 ML IV SCH (18:00)
== END 2019-09-05 16:30 | disposition home or self-care (01) | DRG 721 ==
LOC: EEVIPCON 19:30 → MED 19:30 → MMU 23:26 → MTU 09-05 08:05
PROVIDERS: ADMIT General Practice; ATTEND General Practice
PROC: 0JPVXXZ Removal of Tunneled Vascular Access Device from Upper Extremity Subcutaneous Tissue and Fascia, External Approach (ICD-10-PCS; principal; 2019-09-02)
PROC: 5A1D70Z Performance of Urinary Filtration, Intermittent, Less than 6 Hours Per Day (ICD-10-PCS; 2019-09-02)
PROC: 02HV33Z Insertion of Infusion Device into Superior Vena Cava, Percutaneous Approach (ICD-10-PCS; 2019-09-05)
PROC: B548ZZA Ultrasonography of Superior Vena Cava, Guidance (ICD-10-PCS; 2019-09-05)
PROC: 5A1D70Z Performance of Urinary Filtration, Intermittent, Less than 6 Hours Per Day (ICD-10-PCS; 2019-09-05)
DX: T80.211A Bloodstream infection due to central venous catheter, initial encounter (principal); A41.89 Other specified sepsis; E43 Unspecified severe protein-calorie malnutrition; J96.01 Acute respiratory failure with hypoxia; J18.9 Pneumonia, unspecified organism; E11.22 Type 2 diabetes mellitus with diabetic chronic kidney disease; E11.42 Type 2 diabetes mellitus with diabetic polyneuropathy; I12.0 Hypertensive chronic kidney disease with stage 5 chronic kidney disease or end stage renal disease; N18.6 End stage renal disease; Z68.30 Body mass index [BMI] 30.0-30.9, adult; Z99.2 Dependence on renal dialysis; E78.5 Hyperlipidemia, unspecified; Z88.1 Allergy status to other antibiotic agents; E87.6 Hypokalemia; N39.0 Urinary tract infection, site not specified; F32.9 Major depressive disorder, single episode, unspecified; D63.8 Anemia in other chronic diseases classified elsewhere; Z03.818 Encounter for observation for suspected exposure to other biological agents ruled out
CPT/HCPCS: 36415; 36600; 71045; 80048; 80053; 80202; 80305; 81001; 82150; 82550; 82728; 82803; 82948; 83036; 83605; 83615; 83690; 83735; 83880; 84100; 84443; 84484; 85025; 85379; 85384; 85610; 85651; 85730; 86140; 87040; 87070; 87081; 87086; 87186; 87420; 87804; 93005; 99285; J0456; J0696; J1644; J1815; J2001; J2270; J2405; J3370; J3475; J7030; J7060; Q0092

== ENCOUNTER 2019-09-23 11:07 | Inpatient (IN) | payer MEDICAID ==
[~2019-09-23] VITALS: Ht 172.7 cm; Wt 99.8 kg
[~2019-09-23 11:07] MED LIST: ACET1TAB93 PO; ASPI-1822 PO; ATOR10TA PO; BENZ100C6 PO; FLUO40CA6 PO; GABA100C PO; HUMSLIDE SUBQ; HYDR100T79 PO; LANTUS SUBQ; LISI40TA4 PO; ONDA4TAB PO; PHO667 PO
[2019-09-23 11:13] VITALS: BP 149/116
--- NOTE | 2019-09-23 11:30 | NUR ---
PT WAS REFERRED FROM DIALYSIS CENTER FOR CVC HEMODIALYSIS PLACEMENT. DIALYSIS CATH FROM LEFT UPPER CHEST CAME OUT TODAY. PT DENIES COUGH, SOB, OR CP. CVC SITE IS COVERING BY GAUZE W/O SIGNS OF BLEEDING OR DRAINAGE. PATIENT STATES PAIN OF 0/10 AT THIS TIME; VSS; PATIENT POSITIONED FOR COMFORT; HOB ELEVATED; BEDRAILS UP X1; BED DOWN. ER MD MADE AWARE OF PT STATUS. PT IS ON THE MONITOR.
[2019-09-23 12:17] LABS: BASOPHILS # (AUTO) 0.1 K/uL (0.00-0.22); BASOPHILS % (AUTO) 1.6 % (0.0-2.0); EOSINOPHILS # (AUTO) 0.2 K/uL (0-0.4); EOSINOPHILS % (AUTO) 3.9 % (0.0-4.0); HEMATOCRIT 25.1 % (36-52); HEMOGLOBIN 8.5 g/dL (12.0-18.0); LYMPHOCYTES % (AUTO) 21.9 % (20.5-51.1); MEAN CORPUSCULAR HEMOGLOBIN 29 pg (27-31); MEAN CORPUSCULAR HGB CONC 34 g/dL (33-37); MEAN CORPUSCULAR VOLUME 86.2 fL (80-94); MONOCYTES # (AUTO) 0.3 K/uL (0.8-1.0); MONOCYTES % (AUTO) 7.4 % (1.7-9.3); NEUTROPHILS % (AUTO) 65.2 % (42.2-75.2); PLATELET COUNT (AUTO) 243 K/uL (140-450); RED BLOOD CELL COUNT(AUTO) 2.92 MIL/uL (4.20-6.10); RED CELL DISTRIBUTION WIDTH 16.6 % (11.6-13.7); WHITE BLOOD COUNT (AUTO) 4.5 K/uL (4.8-10.8)
[2019-09-23 12:46] LABS: ALBUMIN 2.6 g/dL (3.4-5.0); ANION GAP 10.5 (8-16); PHOSPHORUS 3.7 mg/dL (2.5-4.9); POTASSIUM 3.5 mmol/L (3.5-5.1); TOTAL BILIRUBIN 0.5 mg/dL (0.0-1.0)
[2019-09-23 12:55] LABS: CREATININE 6.5 mg/dL (0.6-1.3)
[2019-09-23 13:07] LABS: PROTHROMBIN TIME 9.9 secs (10.8-13.4)
--- NOTE | 2019-09-23 13:51 | NUR ---
PT IS RESTING IN THE BED WITH VSS.
--- NOTE | 2019-09-23 13:55 | NUR ---
SPOKE TO PT'S MOTHER ANTOINETTE AT PHONE # [phone] AND INFORMING HER PT MIGHT BE TRANSFERED TO OTHER HOSPITAL.
--- NOTE | 2019-09-23 14:47 | NUR ---
RENAL DIET-[facility] PROVIDED TO PT.
--- NOTE | 2019-09-23 15:38 | NUR ---
IV INSERTED TO PTS R HAND-20 G
--- NOTE | 2019-09-23 17:44 | NUR ---
PT'S BP IS 182/[address] WESLEY NOTIFIED. WILL CONTINUE TO MONITOR PT'S VITAL SIGNS.
[2019-09-23] MEDS ORDERED: LISINOPRIL 20 MG TAB PO ONE (17:50)
--- NOTE | 2019-09-23 18:01 | NUR ---
RENAL-DIET DINNER PROVIDED TO PT AT BEDSIDE.
[2019-09-23] MEDS ORDERED: HYDROcodone/APAP 5/325 MG 1 TAB TAB PO PRN (18:05)
[2019-09-23] MEDS ORDERED: ONDANSETRON 4 MG/2 ML VIAL IM/IVP PRN (18:05)
[2019-09-23] MEDS ORDERED: DOCUSATE SODIUM 100 MG GELCAP PO PRN (18:05)
[2019-09-23] MEDS ORDERED: ACETAMINOPHEN 325 MG TAB PO PRN (18:05)
[2019-09-23] MEDS ORDERED: ACETAMINOPHEN/CODEINE 300/30MG 1 TAB PO PRN (18:20)
[2019-09-23] MEDS ORDERED: DEXTROSE 50% 50 ML SYR IVP PRN (18:25)
[2019-09-23 18:37] LABS: MAGNESIUM 1.8 mg/dL (1.8-2.4); THYROID STIMULATING HORMONE 1.27 uIU/mL (0.34-3.74)
--- NOTE | 2019-09-23 18:49 | NUR ---
PT IS SLEEPING IN THE BED. BP IMPROVED AFTER TAKING MEDS. WILL CONTINUE MONITOR HIS VITAL SIGNS.
--- NOTE | 2019-09-23 19:25 | NUR ---
Patient will be admitted to care of ESRD, HTN URGENCY. Admited to TELEMETRY. Will go to room 125B. Belongings list completed. Report to ESTEBAN ENAMORADO.
--- NOTE | 2019-09-23 19:30 | NUR ---
ADMITTED PATIENT FROM ER @1930, REPORT RECEIVED FROM ADILENE. PATIENT ARRIVED VIA GURNEY. AWAKE, ALERT AND ORIENTED X4. ON TELE MONITOR, ROOM AIR. PATIENT REPORTED PAIN TO BACK. DRESSING NOTED TO LEFT SIDE OF NECK, HD CATH REPORTED PULLED OUT FROM HEMODIALYSIS CLINIC. SALINE LOCK 20 GAUGE RIGHT HAND, INTACT AND PATENT. ORIENTED TO HOSPITAL ROUTINE, AND STAFF, PLAN OF CARE DISCUSSED AND VERBALIZED UNDERSTANDING. BED IN LOW POSITION, SIDE RAILS UP X2 AND CALL LIGHT WITHIN REACH.WILL FOLLOW UP ADMIT ORDERS AND CONTINUE TO MONITOR.
[2019-09-23 20:00] VITALS: BP 163/100
[2019-09-23] MEDS: ATORVASTATIN 20 MG TAB PO SCH (20:41)
[2019-09-23] MEDS: BENZONATATE 100 MG CAPLF PO SCH (20:41)
[2019-09-23] MEDS: MORPHINE SULFATE 2 MG/ML SYR IVP PRN (20:43)
[2019-09-23] MEDS: INSULIN LISPRO SLIDING SCALE 100 UNITS/ML VIAL SUBQ PRN (20:49)
[2019-09-23] MEDS: BLOOD GLUCOSE MONITORING 1 DEV DEV FS SCH (20:49)
--- NOTE | 2019-09-23 20:49 | NUR ---
BLOOD SUGAR 227, INSULIN COVERAGE HUMALOG 4UNITS SUBQ GIVEN. PROVIDED WITH SOME CRACKERS AND JELLO. WILL CONTINUE TO MONITOR.
--- NOTE | 2019-09-23 21:45 | NUR ---
BLOOD PRESSURE UPON ADMISSION 163/100, REASSESSED AFTER PAIN MEDS GIVEN AND BP 150/85. PAIN 2/10. TOLERABLE TO PATIENT
--- NOTE | 2019-09-23 23:00 | NUR ---
ROUNDS DONE TO CHECK ON PATIENT. PATIENT SLEEPING AT THIS TIME.
[2019-09-24] VITALS: BP 151/90
--- NOTE | 2019-09-24 00:05 | NUR ---
PATIENT INSTRUCTED ON NPO STATUS FOR PLACEMENT OF HD CATHETER
--- NOTE | 2019-09-24 01:51 | NUR ---
PATIENT CURRENTLY SLEEPING. RISE AND FALL OF CHEST NOTED. NO S/S OF DISTRESS, PATIENT HAS BEEN NPO SINCE MIDNIGHT
[2019-09-24 04:00] VITALS: BP 179/108
[2019-09-24 04:04] LABS: BASOPHILS # (AUTO) 0.1 K/uL (0.00-0.22); EOSINOPHILS # (AUTO) 0.2 K/uL (0-0.4); EOSINOPHILS % (AUTO) 4.6 % (0.0-4.0); HEMATOCRIT 26.7 % (36-52); HEMOGLOBIN 8.8 g/dL (12.0-18.0); LYMPHOCYTES # (AUTO) 1.1 K/uL (2.0-11.5); LYMPHOCYTES % (AUTO) 26.6 % (20.5-51.1); MEAN CORPUSCULAR HEMOGLOBIN 29 pg (27-31); MEAN CORPUSCULAR HGB CONC 33 g/dL (33-37); MEAN CORPUSCULAR VOLUME 87.1 fL (80-94); MONOCYTES # (AUTO) 0.3 K/uL (0.8-1.0); MONOCYTES % (AUTO) 8.1 % (1.7-9.3); NEUTROPHILS # (AUTO) 2.4 K/uL (1.8-7.7); NEUTROPHILS % (AUTO) 57.7 % (42.2-75.2); PLATELET COUNT (AUTO) 241 K/uL (140-450); RED BLOOD CELL COUNT(AUTO) 3.06 MIL/uL (4.20-6.10); RED CELL DISTRIBUTION WIDTH 16.5 % (11.6-13.7); WHITE BLOOD COUNT (AUTO) 4.1 K/uL (4.8-10.8)
--- NOTE | 2019-09-24 04:12 | NUR ---
BLOOD PRESSURE HIGH 179/108. DR. PRABHAKAR MADE AWARE. WILL DO ORDER.
[2019-09-24] MEDS ORDERED: hydrALAZINE 20 MG/ML VIAL IVP SCH (04:15)
[2019-09-24 05:05] LABS: ANION GAP 11.8 (8-16); CARBON DIOXIDE 30.7 mmol/L (21-32); POTASSIUM 3.5 mmol/L (3.5-5.1)
[2019-09-24 05:08] LABS: MAGNESIUM 1.8 mg/dL (1.8-2.4)
--- NOTE | 2019-09-24 05:26 | NUR ---
BLOOD SUGAR 150, NO COVERAGE NEEDED, BP REASSESSED 138/93, HR 75
[2019-09-24 05:41] LABS: CREATININE 7.4 mg/dL (0.6-1.3)
[2019-09-24] MEDS: BLOOD GLUCOSE MONITORING 1 DEV DEV FS SCH ×4 (06:33→21:24)
[2019-09-24 07:06] LABS: BARBITURATE, URINE NEGATIVE ng/ml (NEG <=200); BENZODIAZEPINE, URINE NEGATIVE ng/mL (NEG <=200); CANNABINOID, URINE NEGATIVE ng/mL (NEG <=50); COCAINE, URINE NEGATIVE ng/mL (NEG <=300); OPIATE, URINE POSITIVE ng/mL (NEG <=2000); PHENCYCLIDINE SCREEN,URINE NEGATIVE ng/mL (NEG <=25)
--- NOTE | 2019-09-24 07:25 | NUR ---
REPORT GIVEN TO AM SHIFT NURSE FOR CONTINUITY OF CARE. PATIENT IN STABLE CONDITION AND SLEEPING AT THIS TIME. BED IN LOW POSITION AND CALL LIGHT WITHIN REACH
--- NOTE | 2019-09-24 07:26 | NUR ---
RECEIVED REPORT FROM AUTOMATION ANALYST NURSE KAL-RN. PT RESTING IN BED, AOX4, ON ROOM AIR WITH RIGHT HAND #20G/SL. DISCUSSED PLAN OF CARE AND PT VERBALIZED UNDERSTANDING. AWAITING DIALYSIS CATHETER REPLACEMENT OR PROCEDURE SCHEDULED FOR 0900 TODAY. PT IS AWARE. NO S/S OF RESPIRATORY DISTRESS OR DISCOMFORT NOTED AT THIS TIME. WILL CONTINUE TO MONITOR.
[2019-09-24 07:55] LABS: APPEARANCE,URINE CLEAR (CLEAR); BILIRUBIN,URINE NEGATIVE (NEGATIVE); BLOOD, URINE NEGATIVE (NEGATIVE); COLOR,URINE YELLOW (YELLOW); LEUKOCYTE ESTERASE ,URINE NEGATIVE (NEGATIVE); NITRITE, URINE NEGATIVE (NEGATIVE); UGLUCOSE 1+ (NEGATIVE)
[2019-09-24 08:00] VITALS: BP 141/76
[2019-09-24] MEDS: CALCIUM ACETATE 667 MG TAB PO SCH ×3 (08:00→17:01)
[2019-09-24 08:18] LABS: HYALINE CASTS, URINE 0-10 /LPF (None Seen); RBC,URINE 0 /HPF (0-5); WBC,URINE 0-5 /HPF (0-5)
--- NOTE | 2019-09-24 08:30 | NUR ---
SPOKE WITH DR. CARRILLO REGARDING SCHEDULED MEDICATIONS. WAS ORDERED TO GIVE MEDICATIONS AFTER SCHEDULED OR PROCEDURE TO REPLACE DIALYSIS CATHETER BY DR. TG FAROOQ.
[2019-09-24] MEDS: GABAPENTIN 100 MG CAP PO SCH ×3 (09:00→17:02)
[2019-09-24] MEDS: INSULIN LANTUS 100 UNITS/ML 10 ML VIAL SUBQ SCH (09:00)
[2019-09-24] MEDS: hydrALAZINE 25 MG TAB PO SCH ×3 (09:00→17:01)
--- NOTE | 2019-09-24 09:00 | NUR ---
PT C/O NAUSEA. ZOFRAN GIVEN AND TOLERATED WELL. NO S/S OF RESPIRATORY DISTRESS OR DISCOMFORT NOTED AT THIS TIME. WILL CONTINUE TO MONITOR.
--- NOTE | 2019-09-24 09:02 | NUR ---
PATIENT HAS BEEN SCREENED AND CATEGORIZED HIGH NUTRITION RISK. PATIENT WILL BE SEEN WITHIN 1-2 DAYS OF ADMISSION. 09/24/19-09/25/[address]
--- NOTE | 2019-09-24 10:00 | NUR ---
PT TRANSPORTED TO OR FOR DIALYSIS CATHETER REPLACEMENT BY DR. FAROOQ. PT IN STABLE CONDITION.
--- NOTE | 2019-09-24 10:00 | NUR ---
PT WHEELED TO OR. PT IN STABLE CONDITION.
[2019-09-24] MEDS ORDERED: LIDOCAINE 1% 500 MG/50 ML VIAL ONE (10:18)
[2019-09-24] MEDS ORDERED: BUPIVACAINE MPF 0.25% 10 ML VIAL INJ ONE (10:25)
[2019-09-24] MEDS ORDERED: hydrALAZINE 20 MG/ML VIAL ONE (10:28)
[2019-09-24] MEDS ORDERED: MIDAZOLAM 2 MG/2 ML VIAL ONE (10:28)
[2019-09-24] MEDS ORDERED: fentaNYL 0.05 MG/ML VIAL ONE (10:28)
[2019-09-24] MEDS ORDERED: MORPHINE SULFATE 4 MG/ML SYR IV PRN (11:35)
[2019-09-24] MEDS ORDERED: ONDANSETRON 4 MG/2 ML VIAL IV PRN (11:35)
[2019-09-24] MEDS ORDERED: MORPHINE SULFATE 2 MG/ML SYR IVP PRN (11:35)
[2019-09-24] MEDS ORDERED: HYDROcodone/APAP 5/325 MG 1 TAB TAB PO PRN (11:35)
[2019-09-24] MEDS ORDERED: HYDROmorphone 1 MG/ML AMP IVP PRN (11:35)
--- NOTE | 2019-09-24 11:50 | NUR ---
DISCHARGE PLANNING: THIS IS A 39 Y/O MALE PATIENT FROM HOME, WHO WAS BROUGHT IN DUE TO HIGH BLOOD PRESSURE AND DISLODGING OF DIALYSIS CATHETER. PAST MEDICAL HISTORY INCLUDE ESRD, DM WITH NEUROPATHY, HTN, HLD. INITIAL DIAGNOSIS OF ESRD, HYPERTENSIVE URGENCY. CURRENT LABS INCLUDE WBC 4.1, H/H 8.8/26.7, NA/K 141/3.5, BUN/CREA 27/7.4. UDS SHOWED POSITIVE FOR OPIATES. ON ASPIRIN, APRESOLINE AND GABAPENTIN. NEPHRO AND SURGICAL CONSULTS IN PLACE. FOR PERMACATH PLACEMENT TODAY.DC PLAN BACK TO HOME ONCE STABLE. Addendum: 09/24/19 at 1158 by Daphne Goldstein CM 15: RECEIVED A CALL FROM COORDINATOR PHIL OF [employer], STATING THAT THEY NEEDED UPDATED CLINICALS FOR THIS PATIENT AND IS WORKING ON TRANSFERRING THE PATIENT TO A CONTRACTED FACILITY ([facility]). INFORMED HIM THAT PATIENT IS SCHEDULED FOR TUNNELLED CATH PLACEMENT TODAY. HE STATED THAT THEY WILL FAX US OVER THE AUTH FOR TODAY, SINCE THEY DID NOT HAVE ANY BEDS AT THEIR CONTRACTED FACILITY LAST NIGHT. Addendum: 09/25/19 at 1044 by Daphne Goldstein CM 914: CONTACTED COORDINATOR PHIL [facility]CO [facility] AT [phone], TO PROVIDE UPDATE. HE STATED WE HAD A AN AVAILABLE BED LAST NIGHT HOWEVER WE LOST IT SINCE PATIENT WAS HAVING DIALYSIS WHEN THEY CALLED. I ASKED HIM SINCE WE LOST THE BED, IF WE ARE GOING TO GET AUTH FOR TODAY'S STAY. HE STATED THAT IT WILL DEPEND ON THE CM, BECAUSE THEY ARE THE ONES REVIEWING THE CASE. HE STATED TO CONTACT EDITH AT [phone]. 929: DISCUSSED DURING BED HUDDLE, THAT PATIENT WILL BE EVALUATED FOR PT DUE TO PATIENT COMPLAINING THAT HE STILL FEELS WEAK AND FOR POSSIBLE DC TODAY PENDING ON PT'S RECOMMENDATIONS. CONTACTED HALIE SHARMA, NO ANSWER. LEFT MESSAGE. WILL FOLLOW UP. Addendum: 09/25/19 at 1530 by Shankar CALHOUN CHRISTINA FAXED CLINICALS TO [facility] AND [employer] REGARDING FWW TO PROVIDE FOR PATIENT. CHRISTINA SPOKE TO HALLE FROM [employer] [phone]. CHRISTINA WAS NOTIFIED THAT PATIENT REFUSED FWW. NO FURTHER NEEDS IDENTIFIED. Addendum: 09/25/19 at 1551 by Daphne Goldstein RECEIVED A CALL FROM PRIMARY RN BRADEN, STATING THAT PATIENT IS REFUSING FWW OR CANE. COORDINATOR PHIL OF [employer] CONTACTED, NO ANSWER. LEFT VOICEMAIL.
[2019-09-24 12:00] VITALS: BP 156/93
--- NOTE | 2019-09-24 12:00 | NUR ---
PT ARRIVED BACK INTO ASSIGNED BEDROOM. VITAL SIGNS TAKEN AND IN STABLE CONDITION. NO S.S OF RESPIRATORY DISTRESS OR DISCOMFORT NOTED AT THIS TIME. WILL CONTINUE TO MONITOR.
[2019-09-24] MEDS: ASPIRIN 81 MG TAB.CHEW PO SCH (13:25)
[2019-09-24] MEDS: BENZONATATE 100 MG CAPLF PO SCH ×2 (13:25→21:24)
[2019-09-24] MEDS: LISINOPRIL 20 MG TAB PO SCH (13:26)
[2019-09-24] MEDS: FLUoxetine 20 MG CAP PO SCH (13:26)
[2019-09-24] MEDS: INSULIN LISPRO SLIDING SCALE 100 UNITS/ML VIAL SUBQ PRN ×3 (13:27→21:18)
--- NOTE | 2019-09-24 13:27 | NUR ---
BLOOD GLUCOSE 157- INSULIN COVERAGE GIVEN. SCHEDULED MEDICATIONS GIVEN NAD TOLERATED WELL. [phone] CARRILLO AND ORDERED TO GIVE ASPIRIN, PROZAC, TESSALON PERLES, AND ZESTRIL. HOLD 0800 PHOSLO AND ADMINISTER 1200 SCHEDULED. HOLD 0900 APRESOLINE AND NEURONTIN BUT ADMINISTER 1300 SCHEDULED. HOLD 0900 HEPARIN AND RESUME NEXT DOSE. HOLD 0900 LANTUS UNTIL NEXT DOSE.
--- NOTE | 2019-09-24 13:42 | NUR ---
MASTER OF CEREMONIES NOTE: SW ATTEMPTED TO COMPLETE ASSESSMENT WITH PATIENT BUT PATIENT WAS IN OR. SW WILL FOLLOW UP.
--- NOTE | 2019-09-24 15:00 | NUR ---
PT RESTING IN BED. NO S.S OF RESPIRATORY DISTRESS OR DISCOMFORT NOTED AT THIS TIME. WILL CONTINUE TO MONITOR.
--- NOTE | 2019-09-24 15:03 | NUR ---
09/24/19 RD INITIAL ASSESSMENT COMPLETED PLEASE REFER TO NUTRITION ASSESSMENT UNDER CARE ACTIVITY FOR ESTIMATED NUTRITIONAL NEEDS. 1. RD RECOMMENDED CCHO 75 GM RENAL DIET TOLERATED 2. RECOMMEND NEPRO BID 3. PROVIDED NUTRITION EDUCATION ON RENAL DIET. PT ACCEPTED 4. RD TO FOLLOW-UP 3-5 DAYS, MODERATE RISK ALBERTO CH RD
[2019-09-24 16:00] VITALS: BP 129/67
--- NOTE | 2019-09-24 16:30 | NUR ---
BLOOD GLUCOSE 307- WILL ADMINISTER INSULIN COVERAGE.
--- NOTE | 2019-09-24 17:04 | NUR ---
SCHEDULED MEDICATION GIVEN AND TOLERATED WELL. INSULIN COVERAGE GIVEN AND TOLERATED WELL. NO S/S OF RESPIRATORY DISTRESS OR DISCOMFORT NOTED AT THIS TIME. WILL CONTINUE TO MONITOR.
[2019-09-24] MEDS: MORPHINE SULFATE 2 MG/ML SYR IVP PRN (17:48)
--- NOTE | 2019-09-24 17:48 | NUR ---
PT STATED HE WAS FEELING PAIN 9/10 POST SURGERY. MEDICATED WITH MORPHINE 1MG. PT TOLERATED WELL. NO S/S OF RESPIRATORY DISTRESS OR DISCOMFORT NOTED AT THIS TIME. WILL CONTINUE TO MONITOR.
--- NOTE | 2019-09-24 17:56 | NUR ---
DR. CARRILLO STATED THAT DR. RIVERS WANTS PT TO HAVE HD TODAY. CALLED NURSE NAGI AND SHE IS AWARE.
--- NOTE | 2019-09-24 19:30 | NUR ---
RECEIVED PT. AAOX4 , NID - O2 SAT WNL , ON SL INTACT AND PATENT. W/IJ HD ACCESS , NO COMPLAIN OF PAIN AT THIS TIME , ON TELE MONITOR - SR , SAFETY MEASURES IN PLACE - CALL LIGHT WITHIN REACH - REMINDS HIM THE USE OF CALL LIGHT WHENEVER HE NEEDED HELP / ASSISTANCE . PLAN OF CARE DISCUSSED AND VERBALIZED UNDERSTANDING , WILL CONT. TO MONITOR. - WILL GET THE CONSENT FOR HEMODIALYSIS
--- NOTE | 2019-09-24 19:49 | NUR ---
PER AM NURSE THE PT IS FOR DIALYSIS TONIGHT , SHE SAID SHE ALREADY CALLED THE HEMO DIALYSIS UNIT- AFTER THE X RAY OF PLACEMENT OF DIALYSIS ACESS . BUT THE X RAY RESULT REVEALED THE ACCESS HAVE TO RE POSITIONING BEFORE USE - REFER TO ELLA - WAITING FOR FURTHER ORDER.
--- NOTE | 2019-09-24 19:58 | NUR ---
DIALYSIS NURSE ARRIVED - I TOLD HER THE HEMODIALYSIS ACCESS HAVE TO REPOSITIONING BEFORE USE - I TOLD HER THE ELLA AWARE ABOIT IT - WILL WAIT FURTHER ORDERS AND PLAN.
[2019-09-24 20:00] VITALS: BP 132/80
--- NOTE | 2019-09-24 20:00 | NUR ---
DR. FAROOQ FIXING / RE POSITIONING THE L IJ PLACEMENT CATH ( HD ACCESS)- PT TOLERATES THE PROCEDURE .
[2019-09-24] MEDS ORDERED: LIDOCAINE MPF 1% 5 ML ONE ×2 (20:05→20:06)
--- NOTE | 2019-09-24 20:18 | NUR ---
FOR REPEAT CXR ORDERED - FOR CONFIRMATION OF POSITION OF L IJ PLACEMENT CATH . WILL WAIT THE RESULT.
[2019-09-24] MEDS: ATORVASTATIN 20 MG TAB PO SCH (21:07)
--- NOTE | 2019-09-24 21:29 | NUR ---
REPEAT CXR RESULT IN - REVEALED NO CHANGE OF POSITION ON LIJ PLACEMENT CATH - INFORM ELLA ABOUT IT - WILL WAIT FURTHER ORDERS . Addendum: 09/25/19 at 0204 by Naa Allan RN PER RESIDENT - IT'S OK TO USE OF L IJ PLACEMENT CATH FOR HEMODIALYSIS ACCORDING TO DR. FAROOQ - WILL INFORM THE HEMODIALYSIS NURSE - PT IS FOR HEMODIALYSIS TONIGHT - CONSENT SIGNED.
--- NOTE | 2019-09-24 21:30 | NUR ---
COORDINATOR FROM CONTRACTED FACILITY ( [facility] ) CALLED SHE SAID IF THE PT. FOR TRANSFER NOW - I TOLD HER PT. IS NOT FOR TRANSFER AT THIS TIME BECAUSE PT. IS FOR HEMODIALYSIS TONIGHT HERE IN THE HOSPITAL - CHARGE NURSE INFORMED.
[2019-09-24] MEDS ORDERED: MELATONIN 3 MG TAB PO SCH (22:10)
--- NOTE | 2019-09-24 22:30 | NUR ---
PT REQUESTED SLEEPING PILL AND PAIN MEDICINE , BUT WHEN I CAME BACK TO THE PT'S ROOM - PT SLEEPING COMFORTABLY ON BED- I DID NOT BOTHER HIM.
[2019-09-25] VITALS: BP 150/90
--- NOTE | 2019-09-25 00:30 | NUR ---
HEMODIALYSIS STARTED ORDERED - WILL CONT. TO MONITOR.
--- NOTE | 2019-09-25 01:00 | NUR ---
HEMODIALYSIS ON GOING - NO COMPLAIN MADE - NO S/SX OF ACUTE DISTRESS NOTED AT THIS TIME - WILL CONT. TO MONITOR.
--- NOTE | 2019-09-25 02:19 | NUR ---
HEMODIALYSIS COMPLETED W/ 3L OUTPUT - PROCEDURE TOLERATED WELL - WILL CONT. TO MONITOR.
[2019-09-25] MEDS: MORPHINE SULFATE 2 MG/ML SYR IVP PRN ×2 (03:05→09:33)
--- NOTE | 2019-09-25 03:08 | NUR ---
ENDORSED TO NURSE HAYDEN FOR CONTINUITY OF CARE .
--- NOTE | 2019-09-25 03:09 | NUR ---
RECEIVED PT. AAOX4 ,AMBULATORY WITH PERM A TUNNELED CATH ON THE LEFT IJ UPPER CHEST , PT ON ROOM AIR NO RESPIRATORY DISTRESS, WITH RIGHT HAND G 20, SALINE LOCK, INTACT AND PATENT. NO COMPLAINTS OF PAIN AT THIS TIME , ON TELE MONITOR, SAFETY MEASURES IN PLACE , CALL LIGHT WITHIN REACH . Addendum: 09/25/19 at 0342 by Keyla Rodriguez RN PPLS AMEND PERMA CATH TO TO LEFT IJ TUNNELED DIALYSIS CATHETER. DELETE UPPER CHEST
--- NOTE | 2019-09-25 03:34 | NUR ---
PATIENT REQUESTED FOR A NEW GOWN; FIXED PT'S GOWN
[2019-09-25 04:00] VITALS: BP 147/79
--- NOTE | 2019-09-25 04:00 | NUR ---
TOOK THE VS OF THE PATIENT, PT SLEEPING BUT EASILY AROUSABLE BY VERBAL STIMULI. NO COMPLAINTS AT THIS TIME.
[2019-09-25 05:57] LABS: BASOPHILS # (AUTO) 0.1 K/uL (0.00-0.22); BASOPHILS % (AUTO) 1.5 % (0.0-2.0); EOSINOPHILS # (AUTO) 0.2 K/uL (0-0.4); EOSINOPHILS % (AUTO) 3.9 % (0.0-4.0); HEMATOCRIT 25.6 % (36-52); HEMOGLOBIN 8.5 g/dL (12.0-18.0); LYMPHOCYTES # (AUTO) 0.7 K/uL (2.0-11.5); LYMPHOCYTES % (AUTO) 15.7 % (20.5-51.1); MEAN CORPUSCULAR HEMOGLOBIN 29 pg (27-31); MEAN CORPUSCULAR HGB CONC 33 g/dL (33-37); MEAN CORPUSCULAR VOLUME 87.1 fL (80-94); MONOCYTES # (AUTO) 0.3 K/uL (0.8-1.0); MONOCYTES % (AUTO) 7.4 % (1.7-9.3); NEUTROPHILS # (AUTO) 3.2 K/uL (1.8-7.7); NEUTROPHILS % (AUTO) 71.5 % (42.2-75.2); PLATELET COUNT (AUTO) 243 K/uL (140-450); RED BLOOD CELL COUNT(AUTO) 2.94 MIL/uL (4.20-6.10); RED CELL DISTRIBUTION WIDTH 16.1 % (11.6-13.7); WHITE BLOOD COUNT (AUTO) 4.4 K/uL (4.8-10.8)
[2019-09-25] MEDS: BLOOD GLUCOSE MONITORING 1 DEV DEV FS SCH ×2 (06:13→11:57)
[2019-09-25] MEDS: INSULIN LISPRO SLIDING SCALE 100 UNITS/ML VIAL SUBQ PRN (06:14)
--- NOTE | 2019-09-25 06:26 | NUR ---
CHECKED ON PATIENT; SLEEPING, EASILY AROUSABLE, NO RESPIRATORY DISTRESS; NO COMPLAINTS OF PAIN. WILL ENDORSE TO NEXT SHIFT
[2019-09-25 06:43] LABS: ANION GAP 10.7 (8-16); POTASSIUM 3.7 mmol/L (3.5-5.1)
[2019-09-25 06:46] LABS: MAGNESIUM 1.8 mg/dL (1.8-2.4); PHOSPHORUS 3.5 mg/dL (2.5-4.9)
--- NOTE | 2019-09-25 07:20 | NUR ---
RECEIVED REPORT FROM BAND TOP MAKER RNCATRACHO, FOR CONTINUITY OF CARE. PT RESTING IN BED, AOX4, ON ROOM AIR WITH O2 STAT OF 97%. IV ON THE RIGHT HAND 20G SALINE LOCKED. DISCUSSED PLAN OF CARE AND PT VERBALIZED UNDERSTANDING. IJ TUNNELED CATH IN PLACE. PT IS AWARE. NO S/S OF RESPIRATORY DISTRESS OR DISCOMFORT NOTED AT THIS TIME. WILL CONTINUE TO MONITOR.
[2019-09-25 08:00] VITALS: BP 156/93
[2019-09-25 08:06] LABS: CREATININE 5.4 mg/dL (0.6-1.3)
--- NOTE | 2019-09-25 09:25 | NUR ---
MORPHINE IVP GIVEN FOR INCISIONAL NECK PAIN OF 10/10. NO SIGNS OF DISTRESS NOTED. WILL CONTINUE TO MONITOR.
--- NOTE | 2019-09-25 09:30 | NUR ---
MORNING MEDICATIONS GIVEN. NO SIGNS OF DISTRESS NOTED. BP 156/79, HR 80. WILL CONTINUE TO MONITOR.
[2019-09-25] MEDS: GABAPENTIN 100 MG CAP PO SCH ×2 (09:33→12:01)
[2019-09-25] MEDS: CALCIUM ACETATE 667 MG TAB PO SCH ×2 (09:33→11:58)
[2019-09-25] MEDS: LISINOPRIL 20 MG TAB PO SCH (09:34)
[2019-09-25] MEDS: FLUoxetine 20 MG CAP PO SCH (09:34)
[2019-09-25] MEDS: BENZONATATE 100 MG CAPLF PO SCH (09:34)
[2019-09-25] MEDS: hydrALAZINE 25 MG TAB PO SCH ×2 (09:35→12:01)
[2019-09-25] MEDS: ASPIRIN 81 MG TAB.CHEW PO SCH (09:35)
[2019-09-25] MEDS: INSULIN LANTUS 100 UNITS/ML 10 ML VIAL SUBQ SCH (09:49)
--- NOTE | 2019-09-25 10:00 | NUR ---
PT. VERBALIZES WANTING TO STAY FOR ONE MORE NIGHT IN THE HOSPITAL. EDUCATED PT. ON INDICATION OF DISCHARGE AND RISK OF STAYING HOSPITALIZED. PT. VERBALIZES UNDERSTANDING. MD IS AWARE. WILL CONTINUE TO MONITOR.
[2019-09-25] MEDS ORDERED: EPOETIN ALFA 10,000 UNITS/ML VIAL IV SCH (11:00)
--- NOTE | 2019-09-25 11:40 | NUR ---
BLOOD GLUCOSE CHECK WITH VALUE OF 118. INSULIN COVERAGE NOT NEEDED. NO SIGNS OF DISTRESS NOTED. EPOGEN IVP AND PHOSLO GIVEN. WILL CONTINUE TO MONITOR.
[2019-09-25 12:00] VITALS: BP 157/92
[2019-09-25 15:06] VITALS: BP 157/92
--- NOTE | 2019-09-25 15:45 | NUR ---
PT. DISCHARGED TO HOME. DISCHARGE PAPERWORKS SIGNED. DISCHARGED TEACHINGS AND PLAN DISCUSSED. PT. VERBALIZES UNDERSTANDING. IV LINE AND ARMBANDS REMOVED. PT. VERBALIZES NO PAIN AND NO DISTRESS NOTED. WILL CONTINUE TO MONITOR.
== END 2019-09-25 15:45 | disposition home or self-care (01) | DRG 466 ==
LOC: MED 11:07 → MMU 18:04
PROVIDERS: ADMIT General Practice; ATTEND General Practice
PROC: 02HV33Z Insertion of Infusion Device into Superior Vena Cava, Percutaneous Approach (ICD-10-PCS; 2019-09-24)
PROC: B5181ZA Fluoroscopy of Superior Vena Cava using Low Osmolar Contrast, Guidance (ICD-10-PCS; 2019-09-24)
PROC: B548ZZA Ultrasonography of Superior Vena Cava, Guidance (ICD-10-PCS; 2019-09-24)
PROC: 5A1D70Z Performance of Urinary Filtration, Intermittent, Less than 6 Hours Per Day (ICD-10-PCS; 2019-09-24)
PROC: 0JH63XZ Insertion of Tunneled Vascular Access Device into Chest Subcutaneous Tissue and Fascia, Percutaneous Approach (ICD-10-PCS; principal; 2019-09-24 09:00)
DX: T82.49XA Other complication of vascular dialysis catheter, initial encounter (principal); I12.0 Hypertensive chronic kidney disease with stage 5 chronic kidney disease or end stage renal disease; N17.0 Acute kidney failure with tubular necrosis; E43 Unspecified severe protein-calorie malnutrition; I16.1 Hypertensive emergency; N18.6 End stage renal disease; E11.22 Type 2 diabetes mellitus with diabetic chronic kidney disease; E78.5 Hyperlipidemia, unspecified; I82.C11 Acute embolism and thrombosis of right internal jugular vein; E11.42 Type 2 diabetes mellitus with diabetic polyneuropathy; F32.9 Major depressive disorder, single episode, unspecified; E66.9 Obesity, unspecified; E11.65 Type 2 diabetes mellitus with hyperglycemia; D63.1 Anemia in chronic kidney disease; Y84.1 Kidney dialysis as the cause of abnormal reaction of the patient, or of later complication, without mention of misadventure at the time of the procedure; Z99.2 Dependence on renal dialysis; Z68.33 Body mass index [BMI] 33.0-33.9, adult; Z88.1 Allergy status to other antibiotic agents; Z79.4 Long term (current) use of insulin; Z79.82 Long term (current) use of aspirin; Z79.899 Other long term (current) drug therapy; Y92.89 Other specified places as the place of occurrence of the external cause
CPT/HCPCS: 36415; 71045; 80048; 80053; 80305; 81001; 82948; 83735; 83880; 84100; 84443; 85025; 85610; 85730; 86886; 86900; 86901; 87081; 90935; 93005; 97112; 97116; 97161-GP; 99285; C1894; J0360; J0885; J1644; J1815; J2001; J2250; J2270; J2405; J3010; J3490; Q0092

== ENCOUNTER 2022-02-23 11:16 | Emergency (ER) | payer MEDICAID ==
[~2022-02-23] VITALS: Ht 172.7 cm; Wt 77.1 kg
[~2022-02-23 11:16] MED LIST changes: -ACET1TAB93 PO; +CALC667C12 PO; -LISI40TA4 PO; +LISI40TA8 PO; -ONDA4TAB PO; -PHO667 PO
[2022-02-23 11:30] VITALS: BP 109/79
--- NOTE | 2022-02-23 11:48 | NUR ---
pt to er bed 4 via w/c
--- NOTE | 2022-02-23 12:27 | NUR ---
PT C/O LOSS OF VISION TO LEFT EYE X3 DAYS STATES CAN ONLY SEE RED COLORS BUT NOT SHAPES OR IMAGES. ALSO C/O BODY PAIN.
--- NOTE | 2022-02-23 13:51 | NUR ---
Patient discharged with v/s stable. Written and verbal after care instructions given and explained. Patient verbalized understanding. Ambulatory with steady gait. All questions addressed prior to discharge. Advised to follow up with PMD.
== END 2022-02-23 13:51 | disposition home or self-care (01) ==
LOC: MED 11:16
DX: H33.22 Serous retinal detachment, left eye (principal); H54.3 Unqualified visual loss, both eyes; E11.22 Type 2 diabetes mellitus with diabetic chronic kidney disease; I12.0 Hypertensive chronic kidney disease with stage 5 chronic kidney disease or end stage renal disease; N18.6 End stage renal disease; Z99.2 Dependence on renal dialysis; Z79.899 Other long term (current) drug therapy; Z79.82 Long term (current) use of aspirin; Z79.4 Long term (current) use of insulin; Z88.0 Allergy status to penicillin
CPT/HCPCS: 99284